=== PATIENT | male | born 1975 | race Two or more races ===

== ENCOUNTER 2024-12-28 23:00 | Inpatient (IN) | payer OTHER ==
[~2024-12-28] VITALS: Ht 170.2 cm; Wt 89.9 kg
[2024-12-28] MEDS ORDERED: CLON-592 PO (23:40)
[2024-12-28] MEDS ORDERED: PRED1 PO (23:40)
[2024-12-28] MEDS: LORazepam 2 MG/ML VIAL IM ONE (23:50)
[2024-12-28] MEDS: DiphenhydrAMINE HCL 50 MG/ML VIAL IM ONE (23:50)
[2024-12-28] MEDS: HALOPERIDOL LACTATE 5 MG/ML VIAL IM ONE (23:50)
[2024-12-29] VITALS (10 sets, daily range): BP systolic 144–161; BP diastolic 67–108; PULSE 59–88; RESP 17–18; TEMP 97.4–98.1; O2SAT 94–99
[2024-12-29 00:15] LABS: COVID AG,FIA SOURCE NASAL SWAB
[2024-12-29] MEDS ORDERED: HALOPERIDOL 5 MG TABLET PO PRN (00:30)
[2024-12-29] MEDS ORDERED: LORazepam 1 MG TABLET PO PRN (00:30)
[2024-12-29 00:52] LABS: BASOPHILS % (AUTO) 0.6 % (0.0-2.0); HEMOGLOBIN 14.9 g/dL (13.5-17.5); LYMPHOCYTES # (AUTO) 1.8 K/uL (1.0-4.8); MONOCYTES # (AUTO) 0.3 K/uL (0.1-1.0); NEUTROPHILS # (AUTO) 3.5 K/uL (1.8-7.7)
[2024-12-29 00:52] LABS: SARS-COV2 (COVID) ANTIGEN,FIA Negative (Negative)
[2024-12-29 00:53] LABS: ANION GAP 15 mmol/L (8-16); CALCIUM, TOTAL 8.6 mg/dL (8.8-10.5); CARBON DIOXIDE 23 mmol/L (22-29); CHLORIDE 106 mmol/L (98-107); CREATININE 0.87 mg/dL (0.60-1.30); GLOMERULAR FILTR. RATE CALC > 60 mL/min (>60); GLUCOSE,RANDOM 102 mg/dL (70-110); POTASSIUM 3.4 mmol/L (3.5-5.1); SODIUM SERUM 144 mmol/L (136-145); UREA NITROGEN, BLOOD 16 mg/dL (7-18)
[2024-12-29 01:00] LABS: EOSINOPHILS % (AUTO) 0.8 % (1.0-6.0); HEMATOCRIT 42.9 % (41-53); LYMPHOCYTES % (AUTO) 32.3 % (22.0-44.0); MEAN CORPUSCULAR HEMOGLOBIN 34.3 pg (26.0-34.0); MEAN CORPUSCULAR HGB CONC 34.8 G/dL (31.0-37.0); MEAN CORPUSCULAR VOLUME 99 fL (80-100); MONOCYTES % (AUTO) 5.7 % (2.0-9.0); NEUTROPHILS % (AUTO) 60.6 % (40.0-70.0); RED BLOOD CELL COUNT(AUTO) 4.35 MIL/uL (4.50-5.90); RED CELL DISTRIBUTION WIDTH 13.3 % (11.5-14.5); WHITE BLOOD COUNT (AUTO) 5.7 K/uL (4.5-11.0)
[2024-12-29 01:04] LABS: ALCOHOL, BLOOD (SERUM) 183 mg/dL (0-10)
[2024-12-29 01:43] LABS: PLATELET COUNT (AUTO) 90 K/uL (150-450)
[2024-12-29] MEDS: INFLUENZA VIRUS VACCINE TVS (6MO+) 2024-25/PF 45 MCG/0.5 ML SYRINGE IM. ONE (07:02)
[2024-12-29] MEDS ORDERED: AmLODIPine BESYLATE 5 MG TABLET PO SCH (09:00)
[2024-12-29] MEDS: LISINOPRIL 20 MG TABLET PO SCH (09:09)
[2024-12-29] MEDS ORDERED: MAGNESIUM HYDROXIDE SUSPENSION 30 ML UDCUP PO PRN (10:00)
[2024-12-29] MEDS ORDERED: ONDANSETRON 4 MG TABLET PO PRN (10:00)
[2024-12-29] MEDS ORDERED: ACETAMINOPHEN 325 MG TABLET PO PRN (10:00)
[2024-12-29] MEDS ORDERED: IBUPROFEN 400 MG TABLET PO PRN (10:00)
[2024-12-29] MEDS ORDERED: ALBUTEROL SULFATE HFA 90 MCG/PUFF 8 GM INHALER IH PRN (10:00)
[2024-12-29] MEDS ORDERED: LOPERAMIDE HCL 2 MG CAPSULE PO PRN (10:00)
[2024-12-29] MEDS ORDERED: PETROLATUM,WHITE 28 GM JELLY TP PRN (10:00)
[2024-12-29] MEDS ORDERED: GuaiFENesin/D-METHORPHAN [SUGAR-FREE] 200-20MG/10 ML SYRUP UDCUP PO PRN (10:00)
[2024-12-29] MEDS ORDERED: MAG HYDROX/ALUMINUM HYD/SIMETH ES 30 ML SUSPENSION UDCUP PO PRN (10:00)
[2024-12-29] MEDS ORDERED: DOCUSATE SODIUM 100 MG CAPSULE PO PRN (10:00)
[2024-12-29] MEDS ORDERED: CloNIDine HCL 0.1 MG TABLET PO PRN (10:00)
[2024-12-29] MEDS: NICOTINE 14 MG/24 HOUR PATCH TD PRN (10:37)
[2024-12-29] MEDS ORDERED: PROMETHAZINE HCL 25 MG TABLET PO PRN (11:00)
[2024-12-29 12:00] LABS: GLUCOMETER DEV NAME(LOC) BV3N.2; GLUCOSE,POINT OF CARE 110 MG/DL (70-110)
[2024-12-29] MEDS: FOLIC ACID 1 MG TABLET PO SCH (12:43)
[2024-12-29] MEDS: MULTIVITAMINS WITH MINERALS, THERAPEUTIC TABLET PO SCH (12:43)
[2024-12-29] MEDS: CYANOCOBALAMIN 1,000 MCG/ML VIAL IM ONE (12:50)
[2024-12-29] MEDS: THIAMINE 100 MG TABLET PO SCH (17:26)
[2024-12-29] MEDS: ZOLPIDEM TARTRATE 10 MG TABLET PO PRN (21:15)
[2024-12-30] MEDS: LORazepam 2 MG TABLET PO PRN (01:55)
[2024-12-30] MEDS: HydrOXYzine PAMOATE 50 MG CAPSULE PO PRN (01:56)
[2024-12-30 02:44] VITALS: BP 143/86; PULSE 65; RESP 18; TEMP 97.7; O2SAT 100
[2024-12-30 06:58] VITALS: BP 145/83; PULSE 82; RESP 17; TEMP 97.8; O2SAT 97
[2024-12-30] MEDS ORDERED: LORazepam 2 MG TABLET PO PRN (07:00)
[2024-12-30] MEDS: PredniSONE 10 MG TABLET PO SCH (08:23)
[2024-12-30] MEDS: LORazepam 2 MG TABLET PO SCH (08:23)
[2024-12-30 09:01] LABS: BASOPHILS % (AUTO) 0.7 % (0.0-2.0); EOSINOPHILS % (AUTO) 1.2 % (1.0-6.0); HEMATOCRIT 44.2 % (41-53); HEMOGLOBIN 15.3 g/dL (13.5-17.5); LYMPHOCYTES # (AUTO) 1.3 K/uL (1.0-4.8); LYMPHOCYTES % (AUTO) 26.9 % (22.0-44.0); MEAN CORPUSCULAR HEMOGLOBIN 33.8 pg (26.0-34.0); MEAN CORPUSCULAR HGB CONC 34.6 G/dL (31.0-37.0); MEAN CORPUSCULAR VOLUME 98 fL (80-100); MONOCYTES # (AUTO) 0.4 K/uL (0.1-1.0); MONOCYTES % (AUTO) 8.2 % (2.0-9.0); NEUTROPHILS # (AUTO) 3.1 K/uL (1.8-7.7); PLATELET COUNT (AUTO) 73 K/uL (150-450); RED BLOOD CELL COUNT(AUTO) 4.51 MIL/uL (4.50-5.90); RED CELL DISTRIBUTION WIDTH 13.2 % (11.5-14.5); WHITE BLOOD COUNT (AUTO) 4.8 K/uL (4.5-11.0)
[2024-12-30 09:24] LABS: CARBON DIOXIDE 26 mmol/L (22-29); CREATININE 0.77 mg/dL (0.60-1.30); GLUCOSE,RANDOM 222 mg/dL (70-110); UREA NITROGEN, BLOOD 12 mg/dL (7-18)
[2024-12-30 09:25] LABS: ALANINE AMINOTRANSFERASE 100 U/L (12-78); ALBUMIN 3.3 g/dL (3.4-5.0); ALKALINE PHOSPHATASE 81 U/L (46-116); ASPARTATE AMINOTRANSFERASE 68 U/L (15-37); BILIRUBIN,TOTAL 1.4 mg/dL (0.1-1.0); CALCIUM, TOTAL 8.5 mg/dL (8.8-10.5); CHOL/HDL RATIO 1.5 (4.2-7.3); CHOLESTEROL 180 mg/dL (131-200); FREE T4 (FREE THYROXINE) 1.18 ng/dL (0.76-1.46); GLOMERULAR FILTR. RATE CALC > 60 mL/min (>60); HDL CHOLESTEROL 124 mg/dL (40-60); LDL CHOL (CALC.) 42 mg/dL (0-130); THYROID STIMULATING HORMONE 1.76 uIU/mL (0.36-3.74); TOTAL PROTEIN, SERUM 6.7 g/dL (6.4-8.2); TRIGLYCERIDES 69 mg/dL (15-150)
[2024-12-30 09:28] VITALS: BP 154/71; PULSE 62; RESP 17; TEMP 97.4; O2SAT 98
[2024-12-30 09:32] LABS: PH,URINE DRUG SCREEN 5.5 (5.0-8.0)
[2024-12-30 09:36] LABS: ANION GAP 7 mmol/L (8-16); CHLORIDE 100 mmol/L (98-107); SODIUM SERUM 133 mmol/L (136-145)
[2024-12-30 09:42] LABS: HEMOGLOBIN A1C 6.4 % (3.8-5.6)
[2024-12-30 09:43] LABS: ALCOHOL, URINE DRUG SCREEN POSITIVE (NEGATIVE); AMPHET/METH SCREEN,URINE NEGATIVE (NEGATIVE); BARBITURATE SCREEN, URINE NEGATIVE (NEGATIVE); BENZODIAZEPINES SCREEN,URINE NEGATIVE (NEGATIVE); CANNABINOID SCREEN,URINE POSITIVE (NEGATIVE); COCAINE SCREEN,URINE NEGATIVE (NEGATIVE); METHADONE SCREEN, URINE NEGATIVE (NEGATIVE); OPIATE SCREEN,URINE NEGATIVE (NEGATIVE); PHENCYCLIDINE SCREEN,URINE NEGATIVE (NEGATIVE)
[2024-12-30] MEDS ORDERED: LISI-894 PO (10:48)
[2025-01-01] MEDS ORDERED: LORazepam 1 MG TABLET PO PRN (07:00)
[2025-01-01] MEDS ORDERED: LORazepam 1 MG TABLET PO SCH (09:00)
[2025-01-02] MEDS ORDERED: LORazepam 1 MG TABLET PO PRN (07:00)
== END 2024-12-30 11:25 | disposition home or self-care (01) | DRG 885 ==
LOC: EMS 23:10 → UNDOADMIN 12-29 01:01 → EDH 12-29 01:01 → B3A 12-29 05:16
PROVIDERS: ADMIT Psychiatry & Neurology Psychiatry; ATTEND Psychiatry & Neurology Psychiatry
PROC: GZHZZZZ Group Psychotherapy (ICD-10-PCS; principal; 2024-12-29)
PROC: GZ51ZZZ Individual Psychotherapy, Behavioral (ICD-10-PCS; 2024-12-29)
DX: F25.9 Schizoaffective disorder, unspecified (principal); F43.21 Adjustment disorder with depressed mood; F10.20 Alcohol dependence, uncomplicated; E87.6 Hypokalemia; E83.51 Hypocalcemia; Z20.822 Contact with and (suspected) exposure to COVID-19; F12.90 Cannabis use, unspecified, uncomplicated; F31.9 Bipolar disorder, unspecified; Z78.1 Physical restraint status; F41.9 Anxiety disorder, unspecified; G47.00 Insomnia, unspecified; Y90.6 Blood alcohol level of 120-199 mg/100 ml; Z87.891 Personal history of nicotine dependence
CPT/HCPCS: 80048; 80053; 80061; 80307; 82962; 83036; 84439; 84443; 85025; 99285; G0480; J3420